=== PATIENT | male | born 1955 | race Caucasian/White ===

== ENCOUNTER 2017-10-07 09:06 | Inpatient (IN) | payer BC ==
[2017-10-07] VITALS (17 sets, daily range): BP systolic 113–176; BP diastolic 50–91
[~2017-10-07] VITALS: Ht 172.7 cm; Wt 78.0 kg
[2017-10-07] MEDS ORDERED: LIPITOR 20 MG T20 M1 PO (09:48)
[2017-10-07] MEDS ORDERED: LITE COAT ASPI325 MG PO (09:48)
[2017-10-07] MEDS ORDERED: AVAPRO300 MG PO (09:49)
[2017-10-07 09:50] LABS: HEMATOCRIT 44.5 % (42.0-52.0); HEMOGLOBIN 15.3 gm/dL (14.0-18.0); MCH 32.8 pg (26.0-34.0); MCHC 34.4 g/dL (28.0-37.0); MCV 95.3 fL (80.0-100.0); MPV 9.5 fl. (7.2-11.1); RBC 4.66 mil/uL (4.50-6.00); WBC 5.9 thou/uL (4.0-11.0)
[2017-10-07 09:56] LABS: ANION GAP 11 mmol/L (7-16); BUN 19 mg/dL (7-18); CHLORIDE 100 mmol/L (98-107); CO2 28 mmol/L (21-32); CREATININE 1.1 mg/dL (0.6-1.3); GLUCOSE 101 mg/dL (70-99); SODIUM 139 mmol/L (136-145)
[2017-10-07 09:59] LABS: APTT 25.2 Seconds (25.0-31.3); PROTIME 9.7 Seconds (9.20-11.50)
[2017-10-07 10:01] LABS: ALBUMIN 4.2 g/dL (3.4-5.0); ALKALINE PHOSPHATASE 121 U/L (46-116); CHOLESTEROL 228 mg/dL (<200); HDL CHOLESTEROL 54 mg/dL (>40); LDL CHOLESTEROL 145 mg/dL (<100); SERUM ASSESSMENT Clear; SGOT 28 U/L (15-37); SGPT 45 U/L (30-65); TC:HDL 4.2 Ratio (Not establshd); TOTAL BILIRUBIN 0.6 mg/dL (<0.1-1.0); TOTAL PROTEIN 8.8 g/dL (6.4-8.2); TRIGLYCERIDE 148 mg/dL (<150); VLDL 30 mg/dL (<40)
--- NOTE | 2017-10-07 11:30 | H ---
[place] [address] HISTORY AND PHYSICAL Name: JACKIE LIM Room: [facility]#: [id number] Admission: 10/07/17 Attend Phys: Byron Stark MD Discharge: Date of : 59 Report #: [id number] THIS REPORT FOR: //name// CC: Jone Stark DATE OF SERVICE: 10/07/2017 PRIMARY CARE PHYSICIAN: Jone Pro DO. CHIEF COMPLAINT: Abnormal stress test. HISTORY OF PRESENT ILLNESS: The patient is a 62-year-old man with numerous cardiovascular risk factors, including high blood pressure and high cholesterol, had a significantly abnormal calcium score, which led to a stress echo, which showed significant EKG changes, but preserved LV function. In clinical evaluation, based on the risk factor profile, the patient elected to proceed with diagnostic cardiac catheterization. The risks and benefits were described in lay terms. PAST MEDICAL HISTORY: He has a remote history of bilateral pulmonary embolus and was evaluated for hypercoagulable workup and apparently could be discontinued off of his Eliquis; currently, he is on aspirin. He has hypertension and hyperlipidemia, on medical therapy. HOME MEDICATIONS: Include aspirin 325 mg daily, atorvastatin 20 mg daily and Avapro 300 mg daily. FAMILY HISTORY: Positive for CVA maternally. SOCIAL HISTORY: He is a nonsmoker. He rarely drinks. REVIEW OF SYSTEMS: GASTROINTESTINAL: No nausea or vomiting. NEUROLOGIC: Denies slurred speech or weakness. HEMATOLOGIC: No anemia. RENAL: No history of kidney failure. ALLERGIES: Denies aspirin or contrast allergies. CARDIOVASCULAR: No chest pain. RESPIRATORY: Negative for cough or shortness of breath. PHYSICAL EXAMINATION: VITAL SIGNS: Blood pressure is 148/102, pulse is 55, sinus rhythm. GENERAL: Thin, middle-aged male. He is alert, oriented, in no apparent distress. NECK: Supple. [place] [address] HISTORY AND PHYSICAL Name: JACKIE LIM Room: [facility]#: [id number] Admission: 10/07/17 Attend Phys: Byron Stark MD Discharge: Date of : 59 Report #: [id number] CARDIOVASCULAR EXAMINATION: Regular. LUNGS: Clear to auscultation. ABDOMEN: Nontender. EXTREMITIES: No peripheral edema. OUTPATIENT LABORATORY DATA: Creatinine 0.9. Antithrombin III was 91%. Total homocysteine was 16.6. Total cholesterol 301, LDL 219. Calcium score was 50% to 75% range, total of 258.1. ASSSESSMENT AND PLAN: 1. Abnormal stress echocardiogram. 2. Hypertension. 3. Hyperlipidemia. 4. Elevated calcium score. Based on the patient's abnormal stress test and significant risk factor profile, we recommended further evaluation with a diagnostic cardiac catheterization. Risks and benefits were described to the patient in lay terms. The patient elects to proceed. <ELECTRONICALLY SIGNED> By: Byron Stark MD, [facility] 10/07/17 1130 1027 [id number] Stark MD, [facility] /nt
--- NOTE | 2017-10-07 11:43 | EKG ---
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
--- NOTE | 2017-10-07 15:18 | EKG ---
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
--- NOTE | 2017-10-07 18:37 | NUR ---
ASSUMED RESPONSIBILITY THIS AFTERNOON AFTER STENT PLACEMENT TO RCA AND 2 TO THE LAD PT IS UP AD MARYAM ALERT AND ORIENTED X4 AT BEDSIDE PT IS NSR ON THE MONITOR BUT SALONI HAS GOTTEN DOWN TO THE 40S DR MCKEON AWARE PT TO CONTINUE IV FLUIDS UNTIL 0400 DR MCKEON VERY SPECIFIC ABOUT THIS BLOOD PRESSURES FROM 130S-140S/70S-90S PT NOT COMFORTABLE WITH LIPITOR SO DR MCKEON AWARE AND WILL CHANGE TO CRESTOR TOMORROW WHEN PT DISCHARGES PT DENIES ANY PAIN WILL CONT TO MONITOR
[2017-10-08 03:32] VITALS: BP 144/76
[2017-10-08 03:48] VITALS: BP 102/61
[2017-10-08 05:01] LABS: HEMATOCRIT 35.9 % (42.0-52.0); MCHC 34.6 g/dL (28.0-37.0); MCV 95.5 fL (80.0-100.0); MPV 9.7 fl. (7.2-11.1); RBC 3.76 mil/uL (4.50-6.00); WBC 6.7 thou/uL (4.0-11.0)
[2017-10-08 05:11] LABS: HEMOGLOBIN 12.4 gm/dL (14.0-18.0)
[2017-10-08 05:35] LABS: ALBUMIN 3.1 g/dL (3.4-5.0); CALCIUM 7.9 mg/dL (8.5-10.1); CK-MB MASS 2.5 ng/mL (<0.5-3.6); POTASSIUM 4.4 mmol/L (3.5-5.1); TOTAL BILIRUBIN 0.5 mg/dL (<0.1-1.0); TOTAL PROTEIN 6.1 g/dL (6.4-8.2); TROPONIN-I LEVEL 0.28 ng/mL (<0.06)
--- NOTE | 2017-10-08 06:09 | NUR ---
END SHIFT: PT RESTED WELL. NO COMPLAINTS. NO PAIN. RIGHT RADIAL SITE CLEAN DRY INTACT. 2+ PULSES AND GOOD CAP REFIL. SB ON MONITOR. NO ECTOPY. UP WALKING UNIT. AWAITING DC HOME. SAFETY PRECAUTIONS IN PLACE. CALL LIGHT IN REACH. WILL CONT TO MONITOR.
[2017-10-08] MEDS ORDERED: EFFIENT10 MG PO (07:31)
[2017-10-08 08:00] VITALS: BP 146/89
[2017-10-08 09:00] VITALS: BP 130/91
[2017-10-08] MEDS ORDERED: CRESTOR20 MG PO (10:43)
[2017-10-08] MEDS ORDERED: NITROGLYCERIN0.4 MG SUBLING (10:44)
--- NOTE | 2017-10-08 11:09 | NUR ---
ASSUMED RESPONSIBILITY OF PT THIS AM PT IS ALERT AND ORIENTED DID COMPLAIN OF A HEADACHE THIS AM RECEIVED 2 TYLENOL ENCOURAGED FLUIDS WELL DISCHARGE PAPERWORK DONE WITHOUT CONCERNS OR QUESTIONS CARDIAC REHAB NURSE DISCUSSED WITH PT AND SCRIPTS GIVEN WITH EDUCATION SHEETS WELL IV AND STEWARD/STEWARDESS THIRD DISCONTINUED PT DISCHARGED WITH
--- NOTE | 2017-10-08 13:09 | EKG ---
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
--- NOTE | 2017-10-09 11:25 | CARD ---
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 Inhib., Angiomax bolus and infusion Procedure Narrative The patient was brought electively to the Cardiac Catheterization Laboratory and was prepped and draped in a sterile manner. The right wrist was infiltrated with 2% Lidocaine subcutaneous anesthesia. A Slender Glidesheath sheath was inserted into the right radial artery. Coronary angiography was performed using coronary diagnostic catheters. The right coronary system was accessed and visualized with a DCR: [place] 4.0 5fr catheter. The left coronary system was accessed and visualized with a DCR: [place] 4.0 5fr catheter. The left ventricle was accessed and visualized with a PC: Ang[place] 5fr catheter. Left ventricular/Aortic Valve gradient assessed via catheter pullback. Left ventriculogram was performed in RUIZ projection. Closure device was deployed with a Fr Vasc-Band Reg 24cm. Hemostasis was obtained with manual pressure following sheath removal without any complications. The patient tolerated the [place] [address] CARDIAC CATH REPORT Name: JACKIE LIM Room: [address]#: [id number] Admission: 10/07/17 Attend Phys: George Stout MD, Discharge: 10/08/17 Date of : 59 Report #: [id number] were no complications associated with the procedure. Intraoperative Conscious Sedation Sedation start time: 10:47 Case end Time: 12:50 Fentanyl 50 mcg Versed 2 mg 42 Fluoro Time: 42 minutes Dose: DAP 054642 cGycm2 4996.34 mGy Contrast Type and Amount: Visipaque 580 ml Coronary Angiography The patient's coronary anatomy is right dominant. Diagnostic Cath Left Main 0% narrowing LAD 80% tubular proximalmid LAD stenosis Diagonal 1 40% proximal narrowing Circumflex 30% proximal narrowing Right Coronary Sequential 80% proximal and mid right coronary stenoses, this being a dominant vessel Left Ventriculography The left ventricle is normal in size with normal contractility. The left ventricular ejection fraction is estimated to be 65%. Left ventricular wall motion abnormalities are not present. There is no mitral insufficiency. IVUS Anticoagulation was achieved with Angiomax. Fractional Flow Bradley was performed on the proximalmid LAD vessel. IVUS Findings FFR was calculated on the proximalmid LAD segment with a minimum value of 0.71 after adenosine provocation, suggesting hemodynamic significance Hemodynamics The aortic pressure is 110/68 mmHg with a mean of mmHg. The left ventricular pressure is 121/0 mmHg with a mean of mmHg. The left ventricular end diastolic pressure is 5 mmHg. There was no gradient across the aortic valve upon pullback. PCI Technique Lesion Anticoagulation was achieved with Angiom[place] [address] CARDIAC CATH REPORT Name: JACKIE LIM Room: [address]#: [id number] Admission: 10/07/17 Attend Phys: George Stout MD, Discharge: 10/08/17 Date of : 59 Report #: [id number] intervention was performed on the proximal right coronary artery. The lesion stenosis prior to intervention was 80% with BRANDY 3 flow. A 6FR JCR 4 100CM Guide Catheter was used to engage the ostium. A IG: BMW 190cm Interventional Guidewire was used to cross the lesion. BALLOON DILATION A Balloon catheter Trek RX 2.5 X 12 was inserted and inflated up to 12.00atm for 9seconds. Additional Inflation: 12.00atm for 7seconds. Additional Inflation: 12.00atm for 11seconds. STENT DEPLOYMENT A drug-eluting stent Xience Alpine RX 2.75X33 was inserted and inflated up to 14.00atm for 14seconds. Additional Inflation: 18.00atm for 14seconds. Additional Inflation: 22.00atm for 16seconds. POST STENT DEPLOYMENT BALLOON DILATION A Balloon catheter NC Trek RX 3.25 X 12 was inserted and inflated up to 14.00atm for 7seconds. Additional Inflation: 16.00atm for 8seconds. Additional Inflation: 18.00atm for 10seconds. Final angiography reveals 10 % stenosis with BRANDY 3 flow. PCI Technique Lesion The lesion stenosis prior to intervention was proximalmid LAD% with BRANDY flow. BALLOON DILATION A Balloon catheter FFR was calculated on the proximalmid LAD segment with a minimum value of 0.71 after adenosine provocation, suggesting hemodynamic significance was inserted and inflated up to sanjeev for seconds. PCI Technique Lesion 2 Percutaneous Coronary Intervention was performed on the proximalmid left anterior descending artery segment. The lesion stenosis prior to intervention was 80% with BRANDY 3 flow. A 6F JL 3.5 Guide Catheter was used to engage the ostium. A IG: ProwaterFlex 180CM Interventional Guidewire was used to cross the lesion. Balloon Dilation A Balloon catheter Trek RX 2.5 X 15 was inserted and inflated up to 10.00atm for 6seconds. Additional Inflation: 12.00atm for 7seconds. Additional Inflation: 14.00atm for 8seconds. Stent Deployment A drug-eluting stent Xience Alpine RX 2.5X33, 2.75x8 was inserted and [address] [address] CARDIAC CATH REPORT Name: JACKIE LIM KEMI Room: [address] [place] [facility].#: [id number] Admission: 10/07/17 Attend Phys: George Stout MD, Discharge: 10/08/17 Date of : 59 Report #: [id number] inflated up to 10.00atm for 10seconds. Additional Inflation: 12.00atm for 10seconds. Post Stent Deployment Balloon Dilation A Balloon catheter NC Trek RX 3.0 X 8 was inserted and inflated up to 16atm for 10seconds. Final angiography reveals 10 % stenosis with BRANDY 3 flow. PCI Technique Lesion 3 Percutaneous Coronary Intervention was performed on the proximal left anterior descending artery segment. Stent Deployment A drug-eluting stent Xience Alpine RX 2.75X08 was inserted and inflated up to 12.00atm for 9seconds. Additional Inflation: 14.00atm for 9seconds. Additional Inflation: 18.00atm for 12seconds. 12 SANJEEV X 6 SECONDS 14 SANJEEV X 8 SECONDS Post Stent Deployment Balloon Dilation A Balloon catheter NC Trek RX 3.0 X 8 was inserted and inflated up to 16.00atm for 6seconds. Additional Inflation: 14.00atm for 53seconds. Conclusion #1 significant coronary artery characterized by the following A 80% tubular proximalmid LAD stenosis with 40% proximal first diagonal narrowing B 30% narrowing of the proximal portion of the nondominant circumflex C dominant right coronary artery with sequential 80% proximal and mid vessel stenoses #2 normal left ventricular systolic function, estimated ejection fraction being 65% #3 fractional flow was calculated pertinent to tubular 80% proximalmid LAD stenosis with a minimum value 0.71 suggesting hemodynamic significance #4 successful percutaneous coronary intervention with deployment of a drug-eluting stent at the site of sequential 80% proximal and mid right coronary stenosis with 10% residual narrowing and BRANDY-3 [place] [address] CARDIAC CATH REPORT Name: JACKIE LIM KEMI Room: [address] [place] .R[address]#: [id number] Admission: 10/07/17 Attend Phys: George Stout MD, Discharge: 10/08/17 Date of : 59 Report #: [id number] the distal vessel #5 successful percutaneous coronary intervention with deployment of sequential drug-eluting stents at the site of 80% proximalmid LAD stenosis with 10% residual narrowing and BRANDY-3 flow the distal vessel. Recommendations Cardiac Risk Reduction Program Aggressive Medical Therapy Medications Administered Aspirin (any) Prasugrel Diagnostic Cath Approved by: Byron Stark MD Date/Time: 10/09/17 at 1122 hours <ELECTRONICALLY SIGNED> By: George Stout MD, FACC 10/09/17 1124 1124 1124Joabelino Stout MD, FACC /INF
--- NOTE | 2017-10-24 11:49 | D ---
[address] [address] DISCHARGE SUMMARY Name: JACKIE LIM KEMI Room: [address] IN M.R.#: [id number] Admission: 10/07/17 Attend Phys: George Stout MD, Discharge: 10/08/17 Date of : 59 Report #: [id number] THIS REPORT FOR: //name// CC: IRAJ Stout DATE OF SERVICE: 10/08/2017 DIAGNOSES: 1. Unstable angina. 2. Status post percutaneous coronary intervention to the proximal right coronary artery and proximal left anterior descending coronary artery. 3. Hyperlipidemia. HOSPITAL SUMMARY: The patient is a 62-year-old man with a history of hyperlipidemia and hypertension, who had had an abnormal calcium score and ultimately had an abnormal stress echo test. He underwent a diagnostic cardiac catheterization via the right radial artery, which demonstrated a high-grade proximal RCA stenosis and a borderline 50-70% proximal to mid LAD stenosis. He was treated with a drug-eluting stent to the right coronary artery per Dr. Stout, and we did a wave wire a procedure of the proximal LAD, which was abnormal and ultimately required another PCI with placement of a drug-eluting stent in this region. He tolerated the procedure well. His ejection fraction is normal. He had only mild disease in the circumflex system. He did have labs including a lipid profile, which showed his LDL had only decreased from 219-145 on atorvastatin, so we switched him to rosuvastatin 20 mg daily. He will also be discharged on Effient 10 mg daily along with aspirin, and he will continue with his ARB for high blood pressure. He will follow up with our office on 11/22. <ELECTRONICALLY SIGNED> By: Byron Stark MD, FACC 10/24/17 1149 1015 [id number] Stark MD, FACC /nt
== END 2017-10-08 11:05 | disposition home or self-care (01) | DRG 247 ==
LOC: M.CL 09:06 → M.TBA-CV 13:19 → M.2W 13:19
PROVIDERS: Internal Medicine Cardiovascular Disease; ADMIT Internal Medicine
DX: I25.110 Atherosclerotic heart disease of native coronary artery with unstable angina pectoris (principal); E78.00 Pure hypercholesterolemia, unspecified; E78.5 Hyperlipidemia, unspecified; I10 Essential (primary) hypertension; Z86.711 Personal history of pulmonary embolism; Z79.82 Long term (current) use of aspirin; Z79.899 Other long term (current) drug therapy; Z82.3 Family history of stroke